=== PATIENT | female | born 2000 | race Caucasian/White ===

== ENCOUNTER 2023-12-20 07:38 | Emergency (ER) | payer OTHER, BC ==
[~2023-12-20] VITALS: Ht 157.5 cm; Wt 64.1 kg
[2023-12-20 07:52] VITALS: BP 109/67; PULSE 86; RESP 18; TEMP 98.2; O2SAT 98
[2023-12-20 08:00] VITALS: O2SAT 98
[2023-12-20] MEDS ORDERED: NAPR-1704 PO (08:52)
[2023-12-20] MEDS ORDERED: SULF-58 PO (08:52)
[2023-12-20] MEDS ORDERED: ONDA-188 PO (08:52)
[2023-12-20 09:26] LABS: APPEARANCE,URINE SL CLOUDY (CLEAR); BILIRUBIN,URINE NEGATIVE (NEGATIVE); BLOOD, URINE NEGATIVE (NEGATIVE); COLOR,URINE YELLOW (YELLOW); LEUKOCYTE ESTERASE ,URINE 1+ (NEGATIVE); NITRITE, URINE NEGATIVE (NEGATIVE); PROTEIN,URINE NEGATIVE (NEGATIVE); UGLUCOSE NEGATIVE (NEGATIVE); UROBILINOGEN,URINE 0.2 EU/dL (0.2 - 1)
[2023-12-20 09:47] LABS: BACTERIA,URINE 1+ /HPF (None Seen); SQUAMOUS EPITHELIAL CELL,UR 4-10 (MOD) /LPF (0-3 (FEW))
[2023-12-20 09:50] LABS: RBC,URINE 0-5 /HPF (0-5); WBC,URINE 16-25 (MOD) /HPF (0-5)
== END 2023-12-20 09:10 | disposition home or self-care (01) ==
LOC: MED 07:38
DX: N39.0 Urinary tract infection, site not specified (principal); R19.7 Diarrhea, unspecified; Z79.899 Other long term (current) drug therapy
CPT/HCPCS: 81001; 81025; 87086; 99283